=== PATIENT | male | born 1975 | race Caucasian/White ===

== ENCOUNTER 2023-07-16 13:11 | Emergency (ER) | payer OTHER, SELFPAY ==
[2023-07-16 13:13] VITALS: BP 140/106; PULSE 83; RESP 16; TEMP 36.1; O2SAT 99; BMI 34.9
--- NOTE | 2023-07-16 13:30 | EDS_ITS ---
HPI History of Present Illness Chief Complaint: Nosebleed Informant: patient and spouse/S.O. Onset/Context/Timing Onset: Today Narrative Narrative: Patient presents secondary to nosebleed. He states has had about 5 separate nosebleeds since midnight last night. Most of the blood is coming from the left nare. He denies recent facial trauma or cold symptoms. He does wear CPAP but has had water with it. No history of significant nosebleeds. He is not on anticoagulants. [facility] Medical History (Updated 07/16/23 @ 14:[address] Tanika Teresa MD) Acid reflux Amputation above knee Arthritis Bone fracture DM w/o complication type II Essential hypertension Gout History of blood transfusion Neuropathy RICO (obstructive sleep apnea) TBI (traumatic brain injury) Home Medications allopurinol 300 mg tablet 300 mg PO DAILY 06/23/21 [History Last Taken Unknown] atorvastatin 40 mg tablet (Lipitor) 40 mg PO DAILY 06/23/21 [History Last Taken Unknown] bupropion HCl 300 mg 24 hr tablet, extended release (Wellbutrin XL) 300 mg PO QAM 06/23/21 [History Last Taken Unknown] cholecalciferol (vitamin D3) 50 mcg (2,000 unit) capsule 50 mcg PO DAILY 06/23/21 [History Last Taken Unknown] dronabinol 2.5 mg capsule (Marinol) 2.5 mg PO QHS #30 caps 06/23/21 [Rx Last Taken Unknown] gabapentin 800 mg tablet 900 mg PO TID 06/23/21 [History Last Taken Unknown] lisinopril 20 mg tablet 20 mg PO DAILY 06/23/21 [History Last Taken Unknown] metformin 1,000 mg tablet 1,000 mg PO BID 06/23/21 [History Last Taken Unknown] methocarbamol 500 mg tablet 500 mg PO TID 06/23/21 [History Last Taken Unknown] naproxen 500 mg tablet (Naprosyn) 500 mg PO BID 06/23/21 [History Last Taken Unknown] nortriptyline 25 mg capsule 25 mg PO BID 06/23/21 [History Last Taken Unknown] omega-3 fatty acids 1,000 mg capsule 1,000 mg PO DAILY 06/23/21 [History Last Taken Unknown] omeprazole 40 mg capsule,delayed release 40 mg PO BID 06/23/21 [History Last Taken Unknown] riboflavin (vitamin B2) 50 mg tablet 50 mg PO DAILY 06/23/21 [History Last Taken Unknown] sertraline 100 mg tablet 100 mg PO DAILY #90 tabs 06/23/21 [Rx Last Taken Unknown] trazodone 50 mg tablet 50 mg PO DAILY 06/23/21 [History Last Taken Unknown] amoxicillin 875 mg-potassium clavulanate 125 mg tablet 1 tab PO BID #10 tabs 07/16/23 [Rx Last Taken Unknown] Allergy/AdvReac Type Severity Reaction Status Date / Time buprenorphine [From Suboxone] Allergy Mild Nausea Verified 07/16/23 13:12 naloxone [From Suboxone] Allergy Mild Nausea Verified 07/16/23 13:12 nizatidine [From Axid] Allergy Mild Rash Verified 07/16/23 13:12 Family History Sister Glioblastoma Other Cancer Hypertension Melanoma Thyroid disorder Surgical History H/O left wrist surgery S/P ACL surgery S/P UPPP (uvulopalatopharyngoplasty) Social History household members: spouse and children current occupational status: employed Smoking Status: Never smoker alcohol intake: current alcohol intake frequency: a few times a week Alcohol type: wine ROS ROS ED Constitutional Constitutional ED: Denies chills or fever(s) Eyes Eyes: Denies change in vision ENT ENT ED: Reports other Details: Epistaxis Cardiovascular Cardiovascular: Denies chest pain or palpitations Respiratory/Chest Respiratory/Chest: Denies cough or dyspnea Gastrointestinal Gastrointestinal: Denies abdominal pain Musculoskeletal Musculoskeletal: Denies arthralgias Integumentary Denies rash Neurologic Neurologic: Denies headache(s) Psychiatric Psychiatric: Denies anxiety or depression EXAM Physical Exam Const Vital Signs: 07/16/23 13:13 Temperature 96.9 F L Temperature Source Temporal Pulse Rate 83 Respiratory Rate 16 Blood Pressure 140/106 H Blood Pressure Mean 117 Pulse Ox 99 Oxygen Delivery Method Room Air Positive well nourished and well developed General Appearance ED: well developed Eyes EOMs intact bilaterally Chest Wall inspection of chest normal and palpation of chest normal Resp normal respiratory effort and clear to auscultation bilaterally Cardio regular rate and regular rhythm GI non-tender Palpation: soft Extremity Extremity Narrative: Right AKA Neuro oriented x3 Psych mental status grossly normal MDM MDM MDM Narrative Medical decision making narrative: Patient's nasal packing is removed and cottonball saturated with Afrin and Cetacaine is placed in the left nare. After 10 minutes this is removed. Nasal cavity is examined with inflammation of the turbinates but no focal evidence of blood. Merisel placed in the left nare. Patient observed for 20 minutes with no further bleeding. Patient ambulates in the ER without difficulty. Prescription for Augmentin will be sent to the pharmacy to help prevent sinusitis. Referred to ENT for follow-up. Discharge Plan Triage Chief Complaint: Nosebleed ED Provider: Tanika Teresa Dx/Rx/DC Orders Clinical Impression: Epistaxis Instructions: ED Epistaxis (Adult) Prescriptions: New amoxicillin-pot clavulanate 875-125 mg tablet 1 tab PO BID Qty: 10 0RF No Action gabapentin 800 mg tablet 900 mg PO TID Rx Instructions: [facility] allopurinol 300 mg tablet 300 mg PO DAILY atorvastatin [Lipitor] 40 mg tablet 40 mg PO DAILY lisinopril 20 mg tablet 20 mg PO DAILY naproxen [Naprosyn] 500 mg tablet 500 mg PO BID bupropion HCl [Wellbutrin XL] 300 mg tablet extended release 24 hr 300 mg PO QAM omeprazole 40 mg capsule,delayed release(DR/EC) 40 mg PO BID Rx Instructions: [facility] metformin 1,000 mg tablet 1,000 mg PO BID Rx Instructions: [facility] nortriptyline 25 mg capsule 25 mg PO BID Rx Instructions: [facility] trazodone 50 mg tablet 50 mg PO DAILY methocarbamol 500 mg tablet 500 mg PO TID cholecalciferol (vitamin D3) 50 mcg (2,000 unit) capsule 50 mcg PO DAILY riboflavin (vitamin B2) 50 mg tablet 50 mg PO DAILY omega-3 fatty acids 1,000 mg capsule 1,000 mg PO DAILY sertraline 100 mg tablet 100 mg PO DAILY Qty: 90 1RF dronabinol [Marinol] 2.5 mg capsule 2.5 mg PO QHS Qty: 30 1RF Primary Care Provider: Elizabeth Valenzuela Referrals: Matt Moss MD [Med Staff - Active Staff] - 3-5 Days Elizabeth Valenzuela MD [Primary Care Provider] - Disposition Disposition: Home, Self Care
[2023-07-16] MEDS: Oxymetazoline 0.05% 1 SPRAY SPRAY.BTL 2 SPRAY NASAL (13:36)
[2023-07-16] MEDS: Tetracaine/Benzocaine/Butamben 1 APPLIC TOPICAL (13:36)
--- OUTSIDE RECORDS SUMMARY | 2023-07-16 13:51 | XMS RPT_ITS | CCD ---
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 Name Role Phone Free, Text Entry Unavailable Unavailable Lorrie Conde Unavailable Unavailable Allergies Allergy Classification Reported Allergen(s) Allergy Type Date of Onset Reaction(s) Facility (1 source) Nizatidine Drug Allergy Rash [facility] (1 source) Nizatidine Drug Allergy Rash [facility] Medications Current Medications Medication Drug Class(es) Dates Sig (Normalized) Sig (Original) [id number] 200 actuat albuterol 0.09 mg/actuat metered dose inhaler (2 sources) beta2-Adrenergic Agonist Start: 11-30-2021 End: 12-09-2021 take 2 puff(s) by inhalation every four hours as needed for wheezing albuterol 90 mcg/inh inhalation aerosol ; 2 puff(s) inhaled every 4 hours, As Needed for wheezing or shortness of breath Quantity: 1 Refills: 0 Ordered: 30-Nov-2021 Lorrie Conde Start: 30-Nov-2021 End: 09-Dec-2021 Generic Substitution Allowed Comments: For inhalation only.It is very important that you take or use this exactly as directed. Do not skip doses or discontinue unless directed by your doctor.Obtain medical advice before taking any non-prescription drugs as some may affect the action of this medication.Shake well before use. Problems Problem Classification Problem Date Documented Da te Episodic/Chronic Acute bronchitis (2 sources) Acute bronchitis; Translations: [Acute bronchitis] 06-29-2021 Episodic Other lower respiratory disease (2 sources) Cough; Translations: [Cough] 11-30-2021 Episodic Other upper respiratory infections (4 sources) Acute sinusitis; Translations: [Acute sinusitis, unspecified] 12-14-2021 Episodic Residual codes; unclassified (1 source) Generalized aches and pains; Translations: [Generalized pain] 11-30-2021 Episodic Unclassified (2 sources) COUGH LOSS OF VOICE CHEST CONGESTION SINUS 06-29-2021 Results Test Name Value Interpretation Reference Range Facil ity Vital Signs Date Time Vital Sign Value Performing Clinician Facility 11-30-2021 18:17-0400 Body temperature 98.78 [degF] Text Entry Free [facility] 11-30-2021 18:17-0400 Diastolic blood pressure 97 mm[Hg] Text Entry Free [facility] 11-30-2021 18:17-0400 Heart rate 93 /min Text Entry Free [facility] 11-30-2021 18:17-0400 Respiratory rate 16 /min Text Entry Free [facility] 11-30-2021 18:17-0400 SaO2% (BldA) [Mass fraction] 96 % Text Entry Free [facility] 11-30-2021 18:17-0400 Systolic blood pressure 146 mm[Hg] Text Entry Free [facility] 06-29-2021 14:02-0500 Body height 185.4 cm Text Entry Free [facility] 06-29-2021 14:02-0500 Body temperature 97.7 [degF] Text Entry Free [facility] 06-29-2021 14:02-0500 Diastolic blood pressure 98 mm[Hg] Text Entry Free [facility] 06-29-2021 14:02-0500 Heart rate 98 /min Text Entry Free [facility] 06-29-2021 14:02-0500 Respiratory rate 20 /min Text Entry Free [facility] 06-29-2021 14:02-0500 SaO2% (BldA) [Mass fraction] 95 % Text Entry Free [facility] 06-29-2021 14:02-0500 Systolic blood pressure 138 mm[Hg] Text Entry Free [facility] Encounters Encounter Date Encounter Type Care Provider Facility Start: 11-30-2021 End: 11-30-2021 Emergency department patient visit Lorrie Conde [place] [id number] Start: 06-29-2021 End: 06-29-2021 Emergency department patient visit Lorrie Conde [facility] Payers Date Payer Category Payer Policy ID Unknown Social History Date Type Detail Facility [facility] Tobacco smoking consumption unknown [facility] Progress note 08-19-2021 Note Date & Type Note Facility 08-19-2021 Note HNO ID: [id number] Author: Rancho Osborne II OD Service: ? Author Type: WAGE HAND Type: Progress Notes Filed: 08/19/2021 9:36 AM Note Text: Assessment and Plan E11.9 Type 2 diabetes mellitus without retinopathy (HCC) (primary encounter diagnosis) Comment: Examination shows no ocular diabetic complications today. Discussed need for optimal diabetes control to minimize chance of ocular complications. Advise patient to immediately report worsening in status or additional symptoms. Continue yearly dilated eye examinations. 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 Monitor yearly. No retinal traction found in either eye. Discussed symptoms of retinal tear/detachment. If seen patient will return to office without delay. 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 H52.223 Regular astigmatism, bilateral H52.13 Myopia, bilateral H52.4 Presbyopia Comment: Recommend glasses to maximize visual performance. I have confirmed and edited as necessary the relevant ophthalmic history, ROS, and the neuro exam findings as obtained by others. I have seen and examined Myron Lamas. I have discussed the case and the management of this patient's care with the Resident/Fellow, if applicable. I also have reviewed and agree with the assessment and plan as stated above and agree with all of its relevant components. Rancho Osborne II, OD [facility] Summary Purpose Family History No Family History Records FoundNo Family History Records FoundNo Family History Records Found Advance Directives No Advanced Directives Records FoundNo Advanced Directives Records FoundNo Advanced Directives Records Found Additional Source Comments <item><item> Privacy Markings (unrecogniz ed section and content) Section Author: Mera Raza PROHIBITION ON REDISCLOSURE OF CONFIDENTIAL INFORMATION This notice accompanies a disclosure of information concerning a client made to you with the consent of such client. Section Author: Mera Raza PROHIBITION ON REDISCLOSURE OF CONFIDENTIAL INFORMATION This notice accompanies a disclosure of information concerning a client made to you with the consent of such client. (unrecognized sect ion and content) No Status Records FoundNo Status Records FoundNo Status Records Found INFORMATION SOURCE (unrecogn ized section and content) DATE CREATED AUTHOR AUTHOR'S ORGANIZ ATION 12/03/2021 [facility] DATE CREATED AUTHOR AUTHOR'S ORGANIZ ATION 12/03/2021 [facility] FOR RECORDS PERTAINING TO PATIENTS WHO ARE OR HAVE BEEN ENROLLED IN A CHEMICAL DEPENDENCY/SUBSTANCEABUSE PROGRAM, SOME INFORMATION MAY BE OMITTED. This clinical summary was aggregated from multiple sources. Caution should be exercised in using it in the provision of clinical care. This summary normalizes information from multiple sources, and as a consequence, information in this document may materially change the coding, format and clinical context of patient data. In addition, data may be omitted in some cases. CLINICAL DECISIONS SHOULD BE BASED ON THE PRIMARY CLINICAL RECORDS. [facility]. provides no warranty or guarantee of the accuracy or completeness of information in this document.
[2023-07-16] MEDS: Amox/Clavulanate 875 MG Tablet PO (14:39)
== END 2023-07-16 14:42 | disposition home or self-care (01) ==
PROVIDERS: Emergency Provider Emergency Medicine; PCP Internal Medicine; Visit Provider Emergency Medicine
DX: R04.0 Epistaxis (principal); I10 Essential (primary) hypertension
CPT/HCPCS: 30901; 99282

== ENCOUNTER 2023-07-16 18:30 | Emergency (ER) | payer OTHER, SELFPAY ==
[2023-07-16 18:31] VITALS: BP 176/120; PULSE 87; RESP 16; TEMP 35.9; O2SAT 98
--- NOTE | 2023-07-16 19:07 | EDS_ITS ---
HPI <CHRYSTAL Du - Last Filed: 07/16/23 21:29> History of Present Illness Chief Complaint: Nosebleed Narrative Narrative: Patient presenting today due to a nosebleed. Patient was treated here in the ED earlier this afternoon and had Merisel placed. Patient reports that he was only home for about an hour before his nose started to bleed again. He is not on any anticoagulants. He reports that he does use a CPAP at night which has been irritating his nose. No significant history of nosebleeds. PFSH <CHRYSTAL Du - Last Filed: 07/16/23 21:29> [facility] Medical History Acid reflux Amputation above knee Arthritis Bone fracture DM w/o complication type II Essential hypertension Gout History of blood transfusion Neuropathy RICO (obstructive sleep apnea) TBI (traumatic brain injury) Home Medications allopurinol 300 mg tablet 300 mg PO DAILY 06/23/21 [History Last Taken Unknown] atorvastatin 40 mg tablet (Lipitor) 40 mg PO DAILY 06/23/21 [History Last Taken Unknown] bupropion HCl 300 mg 24 hr tablet, extended release (Wellbutrin XL) 300 mg PO QAM 06/23/21 [History Last Taken Unknown] cholecalciferol (vitamin D3) 50 mcg (2,000 unit) capsule 50 mcg PO DAILY 06/23/21 [History Last Taken Unknown] dronabinol 2.5 mg capsule (Marinol) 2.5 mg PO QHS #30 caps 06/23/21 [Rx Last Taken Unknown] gabapentin 800 mg tablet 900 mg PO TID 06/23/21 [History Last Taken Unknown] lisinopril 20 mg tablet 20 mg PO DAILY 06/23/21 [History Last Taken Unknown] metformin 1,000 mg tablet 1,000 mg PO BID 06/23/21 [History Last Taken Unknown] methocarbamol 500 mg tablet 500 mg PO TID 06/23/21 [History Last Taken Unknown] naproxen 500 mg tablet (Naprosyn) 500 mg PO BID 06/23/21 [History Last Taken Unknown] nortriptyline 25 mg capsule 25 mg PO BID 06/23/21 [History Last Taken Unknown] omega-3 fatty acids 1,000 mg capsule 1,000 mg PO DAILY 06/23/21 [History Last Taken Unknown] omeprazole 40 mg capsule,delayed release 40 mg PO BID 06/23/21 [History Last Taken Unknown] riboflavin (vitamin B2) 50 mg tablet 50 mg PO DAILY 06/23/21 [History Last Taken Unknown] sertraline 100 mg tablet 100 mg PO DAILY #90 tabs 06/23/21 [Rx Last Taken Unknown] trazodone 50 mg tablet 50 mg PO DAILY 06/23/21 [History Last Taken Unknown] amoxicillin 875 mg-potassium clavulanate 125 mg tablet 1 tab PO BID #10 tabs 07/16/23 [Rx Last Taken Unknown] Allergy/AdvReac Type Severity Reaction Status Date / Time buprenorphine [From Suboxone] Allergy Mild Nausea Verified 07/16/23 13:12 naloxone [From Suboxone] Allergy Mild Nausea Verified 07/16/23 13:12 nizatidine [From Axid] Allergy Mild Rash Verified 07/16/23 13:12 Family History Sister Glioblastoma Other Cancer Hypertension Melanoma Thyroid disorder Surgical History H/O left wrist surgery S/P ACL surgery S/P UPPP (uvulopalatopharyngoplasty) Social History household members: spouse and children current occupational status: employed Smoking Status: Never smoker alcohol intake: current alcohol intake frequency: a few times a week Alcohol type: wine ROS <CHRYSTAL Du - Last Filed: 07/16/23 21:29> ROS ED Constitutional Constitutional ED: Denies chills or fever(s) ENT ENT ED: Reports epistaxis Cardiovascular Cardiovascular: Denies chest pain Respiratory/Chest Respiratory/Chest: Denies cough or dyspnea Gastrointestinal Gastrointestinal: Denies abdominal pain, nausea or vomiting Musculoskeletal Musculoskeletal: Denies arthralgias or myalgias Integumentary Denies rash Neurologic Neurologic: Denies weakness EXAM <CHRYSTAL Du - Last Filed: 07/16/23 21:29> Physical Exam Const Vital Signs: 07/16/23 18:31 Temperature 96.7 F L Temperature Source Temporal Pulse Rate 87 Respiratory Rate 16 Blood Pressure 176/120 H Blood Pressure Mean 138 Pulse Ox 98 Oxygen Delivery Method Room Air Positive well nourished, well developed and no apparent distress General Appearance ED: well developed HEENT Reports normocephalic and head/scalp atraumatic HEENT Narrative: Bleeding from the left naris, this appears to be anterior, no septal hematoma or septal deviation. Mouth ED: Yes moist mucous membranes normal Eyes PERRL and EOMs intact bilaterally Neck full ROM and supple Chest Wall inspection of chest normal Resp normal respiratory effort and clear to auscultation bilaterally Cardio regular rate and regular rhythm GI soft to palpation, non-tender, non-distended and no masses Back/Spine normal ROM and normal to inspection Extremity normal to inspection and full ROM Neuro oriented x3, CN's II-XII intact bilaterally, moves all extremities, no focal motor deficits and no sensory deficits noted Sensorium / Orientation: awake and alert Psych mental status grossly normal and thought process normal Skin no rashes or lesions noted and no wounds <Dr. Feliberto Caputo MD - Last Filed: 07/16/23 22:13> Physical Exam Const Vital Signs: 07/16/23 18:31 Temperature 96.7 F L Temperature Source Temporal Pulse Rate 87 Respiratory Rate 16 Blood Pressure 176/120 H Blood Pressure Mean 138 Pulse Ox 98 Oxygen Delivery Method Room Air MDM <CHRYSTAL Du - Last Filed: 07/16/23 21:29> [facility] Narrative Medical decision making narrative: Patient presenting due to left anterior nosebleed, Merisel was placed earlier today but began to have bleeding through that. I did have patient blow his nose to remove the clots and Es mix soaked on a cottonball was placed in the nose and the nose was clamped for several minutes. On reexamination, patient was bleeding through the clamp and cotton ball. Thrombin was then administered. Rhino Rocket was then placed. Patient will be observed. On reexamination patient felt that blood was still going down the back of his throat and felt like he could still possibly be bleeding. Labs were obtained, we did discuss possible transfer with the patient to [facility] or another hospital that has ENT. Labs overall are unremarkable. On further examination, patient feels that the bleeding has subsided. He will be ambulated around the ED and further disposition will be made after that. Lab Data Attestation: I reviewed the patient's lab results. Labs: Laboratory Results - last 24 hr 07/16/23 20:25 WBC 9.3 RBC 5.96 Hgb 15.9 Hct 47.5 MCV 79.7 L MCH 26.7 L MCHC 33.5 RDW Std Deviation 37.2 RDW Coeff of Diamond 13.0 Plt Count 267 MPV 9.9 Immature Gran % (Auto) 0.900 Neut % (Auto) 64.1 Lymph % (Auto) 24.9 [place] % (Auto) 6.4 Eos % (Auto) 2.7 Baso % (Auto) 1.0 Absolute Neuts (auto) 6.0 Absolute Lymphs (auto) 2.33 Nucleated RBC % 0 PT 12.5 INR 0.9 APTT 28.1 Sodium 139 Potassium 4.0 Chloride 108 H Carbon Dioxide 25.0 Anion Gap 6 BUN 13 Creatinine 1.11 Estim Creat Clear Calc 89.33 Est GFR (MDRD) Af Amer 91 Est GFR (MDRD) Non-Af 75 BUN/Creatinine Ratio 11.7 Glucose 109 H Calcium 9.0 Total Bilirubin 0.60 AST 36 ALT 85 H Alkaline Phosphatase 78 Total Protein 7.1 Albumin 4.1 Globulin 3.0 Albumin/Globulin Ratio 1.4 <Dr. Feliberto Caputo MD - Last Filed: 07/16/23 22:13> [facility] Lab Data Labs: Laboratory Results - last 24 hr 07/16/23 20:25 WBC 9.3 RBC 5.96 Hgb 15.9 Hct 47.5 MCV 79.7 L MCH 26.7 L MCHC 33.5 RDW Std Deviation 37.2 RDW Coeff of Diamond 13.0 Plt Count 267 MPV 9.9 Immature Gran % (Auto) 0.900 Neut % (Auto) 64.1 Lymph % (Auto) 24.9 [place] % (Auto) 6.4 Eos % (Auto) 2.7 Baso % (Auto) 1.0 Absolute Neuts (auto) 6.0 Absolute Lymphs (auto) 2.33 Nucleated RBC % 0 PT 12.5 INR 0.9 APTT 28.1 Sodium 139 Potassium 4.0 Chloride 108 H Carbon Dioxide 25.0 Anion Gap 6 BUN 13 Creatinine 1.11 Estim Creat Clear Calc 89.33 Est GFR (MDRD) Af Amer 91 Est GFR (MDRD) Non-Af 75 BUN/Creatinine Ratio 11.7 Glucose 109 H Calcium 9.0 Total Bilirubin 0.60 AST 36 ALT 85 H Alkaline Phosphatase 78 Total Protein 7.1 Albumin 4.1 Globulin 3.0 Albumin/Globulin Ratio 1.4 Treatment and Re-Evaluation :: I have personally performed a face to face assessment of the patient and have reviewed the KEVON Note. I performed a substantive portion of the visit including all aspects of the following. My taylor findings include: History: Patient presents with rebleeding on the left side of his nose. He has been having off-and-on bleeding for a few days. He does not have a history of this. He is not on any blood thinners including does not take regular aspirin. No trauma or injury. He has not been sick or congested. He did switch from a facial CPAP to a nasal only CPAP about a month ago. It is irritating for him. But it does have a moisturizing modifying circuit. He was seen earlier and had packing with good results. But after going home for a while he started rebleeding through that. It is still coming off the left side. Exam: He did blow a large number of clots. Had continued bleeding on the left. St John solution was placed. We have ordered thrombin. We will try an inflatable pack to see if we can get this to stop. Medical Decision Making: Procedure: Management of epistaxis: I did use spray thrombin in the nose. We had him blow some clots out. Then we agreed to use spray thrombin. He tended to have dripping from the left side. When he blew the clots out he got a little more bleeding. I then used a 5.5 cm anterior Rhino Rocket inflated in the left naris. This was taped in place. He initially has a little dripping through it. But we will recheck it to see if he develops good clot. Patient started to have some dripping after the procedure. But it calm down a bit. It then started up again with some dripping from the left side. We were going to call about transferring. He had already been seen us twice. We have tried 2 methods of packing. We did use St John solution. We did use thrombin. If we could get this controlled I think we need to increase level of care to ENT. But then the patient stopped bleeding. He is now up and walked in the department with no problems. He has been watched for over an hour or more. He states it is good and is not bleeding front or back anymore. He would like to try to go home. We discussed no bending pushing pulling or hot beverages or drinks. He should relax. This packing does need to come out in about 3 days. If he has further bleeding he should return. Discharge Plan Triage Chief Complaint: Nosebleed ED Midlevel Provider: Magui Coronado ED Provider: Feliberto Caputo Dx/Rx/DC Orders Clinical Impression: Acute anterior epistaxis Instructions: Nosebleed Prescriptions: No Action gabapentin 800 mg tablet 900 mg PO TID Rx Instructions: [facility] allopurinol 300 mg tablet 300 mg PO DAILY atorvastatin [Lipitor] 40 mg tablet 40 mg PO DAILY lisinopril 20 mg tablet 20 mg PO DAILY naproxen [Naprosyn] 500 mg tablet 500 mg PO BID bupropion HCl [Wellbutrin XL] 300 mg tablet extended release 24 hr 300 mg PO QAM omeprazole 40 mg capsule,delayed release(DR/EC) 40 mg PO BID Rx Instructions: [facility] metformin 1,000 mg tablet 1,000 mg PO BID Rx Instructions: [facility] nortriptyline 25 mg capsule 25 mg PO BID Rx Instructions: [facility] trazodone 50 mg tablet 50 mg PO DAILY methocarbamol 500 mg tablet 500 mg PO TID cholecalciferol (vitamin D3) 50 mcg (2,000 unit) capsule 50 mcg PO DAILY riboflavin (vitamin B2) 50 mg tablet 50 mg PO DAILY omega-3 fatty acids 1,000 mg capsule 1,000 mg PO DAILY sertraline 100 mg tablet 100 mg PO DAILY Qty: 90 1RF dronabinol [Marinol] 2.5 mg capsule 2.5 mg PO QHS Qty: 30 1RF amoxicillin-pot clavulanate 875-125 mg tablet 1 tab PO BID Qty: 10 0RF Primary Care Provider: Elizabteh Valenzuela Referrals: Theron Gordillo MD [Med Staff - Active Staff] - 2 Days Elizabeth Valenzuela MD [Primary Care Provider] - Activity Restrictions/Additional Instructions: Please follow-up with ENT in 2-3 days and return for any worsening of your symptoms. Take antibiotics that you were prescribed earlier today as prescribed. Disposition Disposition: Home, Self Care
--- OUTSIDE RECORDS SUMMARY | 2023-07-16 19:16 | XMS RPT_ITS | CCD ---
Author Name Unknown Address [address] [place] [address] Organization [facility] Care Team Providers [facility] Service Worker Name Role Phone Free, Text Entry Unavailable Unavailable Lorrie Conde Unavailable Unavailable Allergies Allergy Classification Reported Allergen(s) Allergy Type Date of Onset Reaction(s) Facility (1 source) Nizatidine Drug Allergy Rash [facility] (1 source) Nizatidine Drug Allergy Rash [facility] Medications Current Medications Medication Drug Class(es) Dates Sig (Normalized) Sig (Original) [id number] 200 actuat albuterol 0.09 mg/actuat metered dose [...] Body temperature 98.78 [degF] Text Entry Free [facility] 11-30-2021 18:17-0400 Diastolic blood pressure 97 mm[Hg] Text Entry Free [facility] 11-30-2021 18:17-0400 Heart rate 93 /min Text Entry Free [facility] 11-30-2021 18:17-0400 Respiratory rate 16 /min Text Entry Free [facility] 11-30-2021 18:17-0400 SaO2% (BldA) [Mass fraction] 96 % Text Entry Free [facility] 11-30-2021 18:17-0400 Systolic blood pressure 146 mm[Hg] Text Entry Free [facility] 06-29-2021 14:02-0500 Body height 185.4 cm Text Entry Free [facility] 06-29-2021 14:02-0500 Body temperature 97.7 [degF] Text Entry Free [facility] 06-29-2021 14:02-0500 Diastolic blood pressure 98 mm[Hg] Text Entry Free [facility] 06-29-2021 14:02-0500 Heart rate 98 /min Text Entry Free [facility] 06-29-2021 14:02-0500 Respiratory rate 20 /min Text Entry Free [facility] 06-29-2021 14:02-0500 SaO2% (BldA) [Mass fraction] 95 % Text Entry Free [facility] 06-29-2021 14:02-0500 Systolic blood pressure 138 mm[Hg] Text Entry Free [facility] Encounters Encounter Date Encounter Type Care Provider Facility Start: 11-30-2021 End: 11-30-2021 Emergency department patient visit Lorrie Conde [place] [id number] Start: 06-29-2021 End: 06-29-2021 Emergency department patient visit Lorrie Conde [facility] Payers Date Payer Category Payer Policy ID Unknown Social History Date Type Detail Facility [facility] Tobacco smoking consumption unknown [facility] Progress note 08-19-2021 Note Date & Type Note Facility 08-19-2021 Note HNO ID: [id number] Author: Rancho Osborne II OD Service: ? Author Type: FRUIT OR NUT GROWER Type: Progress Notes Filed: 08/19/2021 9:36 AM [...] its relevant components. Rancho Osborne II, OD [facility] Summary Purpose Family History No Family History [...] DATE CREATED AUTHOR AUTHOR'S ORGANIZ ATION 12/03/2021 [facility] DATE CREATED AUTHOR AUTHOR'S ORGANIZ ATION 12/03/2021 [facility] [place] FOR RECORDS PERTAINING TO PATIENTS WHO ARE [...] BE BASED ON THE PRIMARY CLINICAL RECORDS. [facility] [employer] [facility]. provides no warranty or guarantee of the accuracy or completeness of information in this document.
[2023-07-16] MEDS: Thrombin 5,000 IU Kit (PSA) 5,000 IU Vial 5000 IU TOPICAL (20:00)
[2023-07-16 20:03] VITALS: BMI 34.8
[2023-07-16] MEDS: Mixture 30 ML Bottle 10 ML TOPICAL (20:10)
[2023-07-16 20:31] LABS: Absolute Lymphocyte Count 2.33 X10^3/uL (0.83-4.51); Basophil# 0.09 X10^3/uL; Eosinophil# 0.25 X10^3/uL; Eosinophils% 2.7 % (0-5); Hematocrit 47.5 % (40-54); Hemoglobin 15.9 g/dL (13.0-16.5); Lymphocyte # 2.33 X10^3/ul (0.83-4.51); Lymphocyte % 24.9 % (19-41); Mean Corp Hgb Conc 33.5 g/dL (32-36); Mean Corpuscular Hgb 26.7 pg (27.0-32.0); Mean Corpuscular Volume 79.7 fL (80-94); Mean Platelet Vol. 9.9 fl (6.2-12.0); Monocyte% 6.4 % (0-10); NRBC Flagged by Analyzer 0 % (0-5); Neutrophil # 5.99 X10^3/uL (2.7-7.7); Neutrophil % 64.1 % (47-70); Platelet Count 267 K/mm3 (150-450); RBC Distribution Width SD 37.2 fl (35.1-43.9); Red Blood Count 5.96 M/mm3 (4.6-6.2); White Blood Count 9.3 K/mm3 (4.4-11.0)
[2023-07-16 20:40] LABS: International Normalized Ratio 0.9; Prothrombin Time (Protime)PT. 12.5 SECONDS (11.7-14.9)
[2023-07-16 20:41] LABS: Partial Thromboplast Time 28.1 Seconds (24.1-36.2)
[2023-07-16 20:51] LABS: ALB/GLOB Ratio 1.4 RATIO (0.9-2.4); AST(SGOT) 36 U/L (15-37); Alanine Aminotransfer ALT/SGPT 85 U/L (16-61); Albumin, Serum 4.1 g/dL (3.2-5.0); Alkaline Phosphatase 78 U/L (45-117); Anion Gap 6 (5-15); BUN 13 mg/dL (7-18); BUN/Creat Ratio 11.7 RATIO (10-20); Chloride 108 mmol/L (98-107); Creatinine, Serum 1.11 mg/dL (0.70-1.30); EST Glomerular Filtration Rate 75 mL/min (>60); Est Glom Filt Rate - Afr Amer 91 mL/min (>60); Estimated Creatinine Clearance 89.33 ml/min; Glucose 109 mg/dL (74-106); Protein, Total 7.1 g/dL (6.4-8.2); Sodium Level 139 mmol/L (136-145)
--- NOTE | 2023-07-16 23:12 | ED.RN ---
PT RETURNS TO ED TRIAGE WITH A NOSE BLEED.
--- NOTE | 2023-07-16 23:25 | ED.RN ---
Pt discharged, ambulated out of department without difficulty. Pt returned to triage area shortly afterwards, states nose started bleeding again. Pt returned to same room, aware.
[2023-07-16] MEDS: TRANEXAMIC ACID 1,000 MG in 0.9% Normal Saline (100mL Bag) 100 ML 440 MG IV (23:56)
== END 2023-07-17 01:38 | disposition home or self-care (01) ==
PROVIDERS: Emergency Provider Emergency Medicine; PCP Internal Medicine; Visit Provider Emergency Medicine
DX: R04.0 Epistaxis (principal)
CPT/HCPCS: 30901; 80053; 85025; 85610; 85730; 96365; 99283; A4216